=== PATIENT | female | born 1955 | race African-American/Black ===

== ENCOUNTER 2018-10-31 02:42 | Inpatient (IN) ==
[2018-10-31 03:55] LABS: Basophils % 0.3 % (0.0-0.8); Eosinophils # 0.1 10*3/uL (0.0-0.87); Eosinophils % 1.2 % (0.00-10.9); Hematocrit 29.5 VOL% (35.7-47.0); Hemoglobin 9.1 GM/DL (12.0-16.0); Immature Granulocytes % 0.3 %; Immature Granulocytes Absolute 0.02 #; Lymphocytes # 2.3 10*3/uL (1.4-4.0); Lymphocytes % 40.2 % (21.3-54.2); Mean Corpuscular HGB Conc 30.8 GM/DL (32-36); Mean Corpuscular Hemoglobin 27 PG (27-34); Mean Corpuscular Volume 85.8 FL (87-102); Mean Platelet Volume 10.8 FL (9.6-12.0); Monocytes # 0.5 10*3/uL (0.11-0.8); Monocytes % 7.9 % (1.7-12.7); Neutrophils # 2.9 10*3/uL (1.4-7.4); Neutrophils % 50.1 % (38.7-73.9); Platelet Count 227 T/CUMM (130-400); Red Blood Count 3.44 MC/CUMM (3.8-5.5); Red Cell Distribution Width 13.1 % (9.3-17.3); White Blood Count 5.7 T/CUMM (4-12)
[2018-10-31 03:58] LABS: PT Patient Result 10.5 SECS; Partial Thromboplastin Time 21.2 SECS (0-40)
[2018-10-31 04:08] LABS: Alanine Aminotransferase 25 U/L (13-56); Albumin 3.4 G/DL (3.4-5.0); Alkaline Phosphatase 79 U/L (45-117); Aspartate Amino Transferase 15 U/L (0-37); Bilirubin,Total < 0.39 MG/DL (0.2-1.0); Blood Urea Nitrogen 20 MG/DL (7-18); Calcium 8.5 MG/DL (8.5-10.1); Glucose 260 MG/DL (74-106); Osmolality,Calculated 290.4 MOS/KG (273-304); Sodium 140 MMOL/L (136-145); Total Protein 6.5 G/DL (6.4-8.3)
[2018-10-31] MEDS ORDERED: ONDANSETRON 4 MG/2 ML VIAL IV PRN (06:02)
[2018-10-31] MEDS ORDERED: ALBUTEROL/IPRATROPIUM 3 ML NEB RESP TX PRN (06:09)
[2018-10-31] MEDS ORDERED: DEXTROSE 50% 25 GM/50 ML SYRINGE IV PRN (06:09)
[2018-10-31] MEDS ORDERED: GLUCAGON 1 MG VIAL IM PRN (06:09)
[2018-10-31] MEDS ORDERED: SODIUM CHLORIDE 0.9% 1,000 ML IV PRN (06:10)
[2018-10-31] MEDS: PANTOPRAZOLE 40 MG VIAL IV SCH (08:17)
[2018-10-31] MEDS: SODIUM CHLORIDE 0.9% 1,000 ML IV SCH ×2 (08:17→16:03)
[2018-10-31] MEDS: INSULIN REGULAR 100 UNIT/ML SUBCUT SCH ×4 (08:17→20:39)
[2018-10-31 08:23] LABS: Hemoglobin 8.5 GM/DL (12.0-16.0)
[2018-10-31 11:24] LABS: Hematocrit 24.4 VOL% (35.7-47.0)
[2018-10-31 11:26] LABS: Hemoglobin 7.8 GM/DL (12.0-16.0)
[2018-10-31 16:10] LABS: Hematocrit 24.4 VOL% (35.7-47.0); Hemoglobin 7.5 GM/DL (12.0-16.0)
[2018-10-31] MEDS: CARVEDILOL 12.5 MG TABLET PO SCH (16:51)
[2018-10-31 19:30] LABS: Hematocrit 23.9 VOL% (35.7-47.0); Hemoglobin 7.4 GM/DL (12.0-16.0)
[2018-10-31] MEDS ORDERED: ACETAMINOPHEN 325 MG TABLET PO PRN (20:15)
[2018-10-31] MEDS: SIMVASTATIN 20 MG TABLET PO SCH (20:38)
[2018-10-31] MEDS ORDERED: INSULIN DETEMIR 100 UNIT/ML SUBCUT SCH (21:00)
[2018-10-31 23:22] LABS: Hematocrit 24.4 VOL% (35.7-47.0); Hemoglobin 7.6 GM/DL (12.0-16.0)
[2018-11-01 05:04] LABS: Basophils % 0.4 % (0.0-0.8); Eosinophils # 0.1 10*3/uL (0.0-0.87); Eosinophils % 1.6 % (0.00-10.9); Hematocrit 25.3 VOL% (35.7-47.0); Hemoglobin 7.7 GM/DL (12.0-16.0); Immature Granulocytes % 0.4 %; Immature Granulocytes Absolute 0.02 #; Lymphocytes # 2.2 10*3/uL (1.4-4.0); Lymphocytes % 42.2 % (21.3-54.2); Mean Corpuscular HGB Conc 30.4 GM/DL (32-36); Mean Corpuscular Hemoglobin 26 PG (27-34); Mean Corpuscular Volume 86.6 FL (87-102); Mean Platelet Volume 12.3 FL (9.6-12.0); Monocytes # 0.5 10*3/uL (0.11-0.8); Monocytes % 10.4 % (1.7-12.7); Neutrophils # 2.3 10*3/uL (1.4-7.4); Platelet Count 148 T/CUMM (130-400); Red Blood Count 2.92 MC/CUMM (3.8-5.5); Red Cell Distribution Width 13.3 % (9.3-17.3); White Blood Count 5.1 T/CUMM (4-12)
[2018-11-01 05:05] LABS: Hemoglobin 7.8 GM/DL (12.0-16.0)
[2018-11-01 05:42] LABS: Calcium 8.3 MG/DL (8.5-10.1); Potassium 3.7 MMOL/L (3.5-5.1); Risk Ratio 2.76; Thyroid Stimulating Hormone 1.62 uIU/ml (0.358-3.74); VLDL CHOLESTEROL 28.4 MG/DL
[2018-11-01] MEDS: PANTOPRAZOLE 40 MG VIAL IV SCH (08:27)
[2018-11-01] MEDS: LEVOTHYROXINE 75 MCG TABLET PO SCH (08:27)
[2018-11-01] MEDS: CARVEDILOL 12.5 MG TABLET PO SCH ×2 (08:27→17:00)
[2018-11-01] MEDS: INSULIN REGULAR 100 UNIT/ML SUBCUT SCH ×4 (08:27→21:54)
[2018-11-01 08:46] LABS: % Iron Saturation 18.3 % (18-50); Ferritin 56.9 ng/ml (8-252)
[2018-11-01] MEDS ORDERED: LISINOPRIL 20 MG TABLET PO SCH (09:00)
[2018-11-01] MEDS ORDERED: CYANOCOBALAMIN 1000 MCG/1 ML VIAL IM ONE (10:02)
[2018-11-01] MEDS: sitaGLIPtin 25 MG TABLET PO SCH (12:00)
[2018-11-01 14:25] LABS: Hematocrit 25.6 VOL% (35.7-47.0); Hemoglobin 7.9 GM/DL (12.0-16.0)
[2018-11-01 16:09] LABS: Hematocrit 27.1 VOL% (35.7-47.0); Hemoglobin 8.4 GM/DL (12.0-16.0)
[2018-11-01] MEDS ORDERED: INSULIN GLARGINE 100 UNIT/ML SUBCUT SCH (17:00)
[2018-11-01] MEDS: SIMVASTATIN 20 MG TABLET PO SCH (21:54)
[2018-11-01 22:32] LABS: Hematocrit 25.4 VOL% (35.7-47.0)
[2018-11-02] MEDS: LEVOTHYROXINE 75 MCG TABLET PO SCH (06:19)
[2018-11-02 06:33] LABS: Basophils % 0.4 % (0.0-0.8); Eosinophils # 0.1 10*3/uL (0.0-0.87); Eosinophils % 1.5 % (0.00-10.9); Hematocrit 24.6 VOL% (35.7-47.0); Hemoglobin 7.7 GM/DL (12.0-16.0); Immature Granulocytes % 0.4 %; Immature Granulocytes Absolute 0.02 #; Lymphocytes # 1.7 10*3/uL (1.4-4.0); Lymphocytes % 36.6 % (21.3-54.2); Mean Corpuscular HGB Conc 31.3 GM/DL (32-36); Mean Corpuscular Hemoglobin 27 PG (27-34); Mean Corpuscular Volume 85.7 FL (87-102); Mean Platelet Volume 10.6 FL (9.6-12.0); Monocytes # 0.4 10*3/uL (0.11-0.8); Monocytes % 9.5 % (1.7-12.7); Neutrophils # 2.4 10*3/uL (1.4-7.4); Neutrophils % 51.6 % (38.7-73.9); Platelet Count 226 T/CUMM (130-400); Red Blood Count 2.87 MC/CUMM (3.8-5.5); Red Cell Distribution Width 13.4 % (9.3-17.3); White Blood Count 4.6 T/CUMM (4-12)
[2018-11-02 07:00] LABS: Calcium 8.4 MG/DL (8.5-10.1); Osmolality,Calculated 283.8 MOS/KG (273-304); Potassium 3.4 MMOL/L (3.5-5.1)
[2018-11-02] MEDS ORDERED: POTASSIUM CHLORIDE 20 MEQ TABLET PO ONE (07:19)
[2018-11-02] MEDS: sitaGLIPtin 25 MG TABLET PO SCH (08:23)
[2018-11-02] MEDS: CARVEDILOL 12.5 MG TABLET PO SCH (08:23)
[2018-11-02] MEDS: PANTOPRAZOLE 40 MG VIAL IV SCH (08:23)
[2018-11-02] MEDS: INSULIN REGULAR 100 UNIT/ML SUBCUT SCH ×2 (08:24→12:40)
[2018-11-02 12:39] VITALS: BP 134/68
[2018-11-02 14:05] LABS: Hematocrit 26.5 VOL% (35.7-47.0); Hemoglobin 8.3 GM/DL (12.0-16.0)
== END 2018-11-02 15:25 | disposition home or self-care (01) | DRG 378 ==
LOC: N.ED 02:42 → N.EDINP 06:02 → N.5E 06:54
PROVIDERS: ADMIT Internal Medicine; ATTEND Internal Medicine

== ENCOUNTER 2022-07-08 14:36 | Inpatient (IN) ==
[2022-07-08] MEDS ORDERED: HYDROmorphone 1 MG/1 ML SYRINGE ONE (16:51)
[2022-07-08] MEDS ORDERED: HYDROmorphone 1 MG/1 ML SYRINGE IV STA (16:52)
[2022-07-08 17:58] LABS: Basophils % 0.3 % (0.0-0.8); Eosinophils % 0.5 % (0.00-10.9); Hematocrit 34.5 VOL% (35.7-47.0); Hemoglobin 11.1 GM/DL (12.0-16.0); Immature Granulocytes % 0.3 %; Immature Granulocytes Absolute 0.02 #; Lymphocytes # 1.9 10*3/uL (1.4-4.0); Lymphocytes % 28.5 % (21.3-54.2); Mean Corpuscular HGB Conc 32.2 GM/DL (32-36); Mean Corpuscular Volume 83.7 FL (87-102); Mean Platelet Volume 10.9 FL (9.6-12.0); Monocytes # 0.5 10*3/uL (0.11-0.8); Monocytes % 7.4 % (1.7-12.7); Platelet Count 248 T/CUMM (130-400); Red Blood Count 4.12 MC/CUMM (3.8-5.5); Red Cell Distribution Width 13.8 % (9.3-17.3); White Blood Count 6.6 T/CUMM (4-12)
[2022-07-08 18:08] LABS: INR 0.9; PT Patient Result 10.2 SECS (10.1-12.1); Partial Thromboplastin Time 20.5 SECS (23.7-32.9)
[2022-07-08] MEDS ORDERED: GLUCAGON 1 MG VIAL IM PRN (18:14)
[2022-07-08] MEDS ORDERED: ONDANSETRON 4 MG/2 ML VIAL IV PRN (18:14)
[2022-07-08] MEDS ORDERED: ZALEPLON 5 MG CAPSULE PO PRN (18:14)
[2022-07-08] MEDS ORDERED: hydrALAZINE 20 MG/1 ML VIAL IV PRN (18:14)
[2022-07-08 18:16] LABS: Albumin 3.6 G/DL (3.4-5.0); Bilirubin,Total 0.6 MG/DL (0.20-1.00); Calcium 9.6 MG/DL (8.5-10.1); Osmolality,Calculated 278.7 MOS/KG (273-304); Potassium 3.6 MMOL/L (3.5-5.1); Total Protein 7.2 G/DL (6.4-8.2)
[2022-07-08] MEDS ORDERED: DEXTROSE 10% 250 ML BAG IV PRN (18:24)
[2022-07-08] MEDS: HYDROmorphone 1 MG/1 ML SYRINGE IV PRN (21:47)
[2022-07-08] MEDS: carvediloL 12.5 MG TABLET PO SCH (22:00)
[2022-07-08] MEDS: SODIUM CHLORIDE 0.45% 1,000 ML IV SCH (22:01)
[2022-07-08] MEDS: INSULIN REGULAR 100 UNIT/ML SUBCUT SCH (22:02)
[2022-07-08] MEDS: INSULIN GLARGINE 100 UNIT/ML SUBCUT SCH (22:06)
[2022-07-08] MEDS: amLODIPine 10 MG TABLET PO SCH (22:08)
[2022-07-09] MEDS: HYDROmorphone 1 MG/1 ML SYRINGE IV PRN ×6 (01:05→23:54)
[2022-07-09 04:50] LABS: Basophils % 0.5 % (0.0-0.8); Eosinophils # 0.1 10*3/uL (0.0-0.87); Eosinophils % 0.8 % (0.00-10.9); Hematocrit 33.7 VOL% (35.7-47.0); Hemoglobin 10.8 GM/DL (12.0-16.0); Immature Granulocytes % 0.3 %; Immature Granulocytes Absolute 0.02 #; Lymphocytes # 1.8 10*3/uL (1.4-4.0); Lymphocytes % 27.7 % (21.3-54.2); Mean Corpuscular Volume 84.3 FL (87-102); Mean Platelet Volume 11.6 FL (9.6-12.0); Monocytes # 0.6 10*3/uL (0.11-0.8); Monocytes % 9.3 % (1.7-12.7); Neutrophils % 61.4 % (38.7-73.9); Platelet Count 235 T/CUMM (130-400); Red Cell Distribution Width 13.7 % (9.3-17.3); White Blood Count 6.6 T/CUMM (4-12)
[2022-07-09 05:19] LABS: Albumin 3.3 G/DL (3.4-5.0); Bilirubin,Total 0.7 MG/DL (0.20-1.00); Calcium 8.8 MG/DL (8.5-10.1); Osmolality,Calculated 282.4 MOS/KG (273-304); Potassium 3.7 MMOL/L (3.5-5.1); Thyroid Stimulating Hormone 7.06 uIU/ml (0.358-3.74); Total Protein 6.7 G/DL (6.4-8.2)
[2022-07-09] MEDS ORDERED: LIDOCAINE 2% 5 ML VIAL ONE (06:29)
[2022-07-09] MEDS ORDERED: MIDAZOLAM 2 MG/2 ML VIAL ONE (06:29)
[2022-07-09] MEDS ORDERED: ROCURONIUM 50 MG/5 ML VIAL IV ONE (06:29)
[2022-07-09] MEDS ORDERED: ONDANSETRON 4 MG/2 ML VIAL ONE (06:29)
[2022-07-09] MEDS ORDERED: SUCCINYLCHOLINE 200 MG/10 ML VIAL ONE (06:29)
[2022-07-09] MEDS ORDERED: propofoL 200 MG/20 ML VIAL IV ONE (06:29)
[2022-07-09] MEDS ORDERED: fentaNYL 100 MCG/2 ML VIAL ONE (06:30)
[2022-07-09] MEDS ORDERED: FAMOTIDINE 20 MG TABLET PO ONE (06:44)
[2022-07-09] MEDS ORDERED: ALBUTEROL 2.5 MG/3 ML NEB RESP TX ONE (06:48)
[2022-07-09] MEDS ORDERED: ceFAZolin 1,000 MG VIAL ONE (07:24)
[2022-07-09] MEDS ORDERED: FAMOTIDINE 20 MG/2 ML VIAL IV ONE (07:31)
[2022-07-09] MEDS: INSULIN REGULAR 100 UNIT/ML SUBCUT SCH ×4 (07:34→21:05)
[2022-07-09] MEDS: LEVOTHYROXINE 75 MCG TABLET PO SCH (07:34)
[2022-07-09] MEDS ORDERED: SEVOFLURANE 1 UNIT/15 MINUTE INH ONE (08:06)
[2022-07-09] MEDS ORDERED: GLYCOPYRROLATE 0.4 MG/2 ML VIAL ONE (08:34)
[2022-07-09] MEDS ORDERED: NEOSTIGMINE 10 MG/10 ML VIAL ONE (08:34)
[2022-07-09] MEDS ORDERED: ALBUTEROL/IPRATROPIUM 3 ML NEB RESP TX ONE (09:11)
[2022-07-09] MEDS ORDERED: LIDOCAINE 1% 5 ML VIAL ONE (09:14)
[2022-07-09] MEDS ORDERED: ROPIVACAINE 0.5% 30 ML VIAL ONE (09:15)
[2022-07-09] MEDS ORDERED: ONDANSETRON 4 MG/2 ML VIAL IV PRN (09:47)
[2022-07-09] MEDS ORDERED: DEXTROSE 10% 250 ML BAG IV PRN (10:26)
[2022-07-09] MEDS: FONDAPARINUX 2.5 MG/0.5 ML SYRINGE SUBCUT SCH (10:45)
[2022-07-09] MEDS: lisinopriL 10 MG TABLET PO SCH (10:45)
[2022-07-09] MEDS: carvediloL 12.5 MG TABLET PO SCH ×2 (10:45→21:07)
[2022-07-09] MEDS: PANTOPRAZOLE 40 MG TABLET PO SCH (10:45)
[2022-07-09] MEDS: ASCORBIC ACID 500 MG TABLET PO SCH (11:34)
[2022-07-09] MEDS: MAGNESIUM OXIDE 400 MG TABLET PO SCH ×2 (11:35→21:06)
[2022-07-09] MEDS: SODIUM CHLORIDE 0.45% 1,000 ML IV SCH (18:00)
[2022-07-09] MEDS: INSULIN GLARGINE 100 UNIT/ML SUBCUT SCH (21:06)
[2022-07-09] MEDS: amLODIPine 10 MG TABLET PO SCH (21:07)
[2022-07-10] MEDS: HYDROmorphone 1 MG/1 ML SYRINGE IV PRN ×3 (03:49→10:33)
[2022-07-10 04:53] LABS: Basophils % 0.3 % (0.0-0.8); Eosinophils % 0.4 % (0.00-10.9); Hematocrit 30.6 VOL% (35.7-47.0); Hemoglobin 9.9 GM/DL (12.0-16.0); Immature Granulocytes % 0.3 %; Immature Granulocytes Absolute 0.03 #; Lymphocytes # 2.3 10*3/uL (1.4-4.0); Lymphocytes % 21.4 % (21.3-54.2); Mean Corpuscular HGB Conc 32.4 GM/DL (32-36); Mean Corpuscular Volume 84.3 FL (87-102); Mean Platelet Volume 11.3 FL (9.6-12.0); Monocytes % 9.5 % (1.7-12.7); Neutrophils % 68.1 % (38.7-73.9); Platelet Count 217 T/CUMM (130-400); Red Blood Count 3.63 MC/CUMM (3.8-5.5); White Blood Count 10.8 T/CUMM (4-12)
[2022-07-10] MEDS: LEVOTHYROXINE 75 MCG TABLET PO SCH (06:35)
[2022-07-10] MEDS: SODIUM CHLORIDE 0.45% 1,000 ML IV SCH ×2 (06:35→21:36)
[2022-07-10] MEDS: INSULIN REGULAR 100 UNIT/ML SUBCUT SCH ×4 (08:15→21:24)
[2022-07-10] MEDS: lisinopriL 10 MG TABLET PO SCH (08:16)
[2022-07-10] MEDS: oxyCODONE/ACETAMINOPHEN 5-325 MG TABLET PO PRN ×3 (08:16→21:25)
[2022-07-10] MEDS: ASCORBIC ACID 500 MG TABLET PO SCH (08:16)
[2022-07-10] MEDS: PANTOPRAZOLE 40 MG TABLET PO SCH (08:16)
[2022-07-10] MEDS: MAGNESIUM OXIDE 400 MG TABLET PO SCH ×2 (08:16→21:27)
[2022-07-10] MEDS: DOCUSATE SODIUM 100 MG CAPSULE PO PRN ×2 (08:16→21:25)
[2022-07-10] MEDS: carvediloL 12.5 MG TABLET PO SCH ×2 (08:16→21:25)
[2022-07-10] MEDS: FONDAPARINUX 2.5 MG/0.5 ML SYRINGE SUBCUT SCH (10:33)
[2022-07-10] MEDS: INSULIN GLARGINE 100 UNIT/ML SUBCUT SCH (21:25)
[2022-07-10] MEDS: amLODIPine 10 MG TABLET PO SCH (21:27)
[2022-07-11] MEDS: oxyCODONE/ACETAMINOPHEN 5-325 MG TABLET PO PRN ×2 (03:28→07:41)
[2022-07-11 05:03] LABS: Basophils % 0.1 % (0.0-0.8); Eosinophils # 0.1 10*3/uL (0.0-0.87); Eosinophils % 1.9 % (0.00-10.9); Hematocrit 29.3 VOL% (35.7-47.0); Hemoglobin 9.2 GM/DL (12.0-16.0); Immature Granulocytes % 0.7 %; Immature Granulocytes Absolute 0.05 #; Lymphocytes # 1.6 10*3/uL (1.4-4.0); Lymphocytes % 22.5 % (21.3-54.2); Mean Corpuscular HGB Conc 31.4 GM/DL (32-36); Mean Corpuscular Volume 85.2 FL (87-102); Mean Platelet Volume 10.8 FL (9.6-12.0); Monocytes # 0.8 10*3/uL (0.11-0.8); Monocytes % 11.5 % (1.7-12.7); Neutrophils % 63.3 % (38.7-73.9); Platelet Count 207 T/CUMM (130-400); Red Blood Count 3.44 MC/CUMM (3.8-5.5); White Blood Count 7.2 T/CUMM (4-12)
[2022-07-11 05:22] LABS: Calcium 8.9 MG/DL (8.5-10.1); Osmolality,Calculated 283.3 MOS/KG (273-304); Potassium 3.6 MMOL/L (3.5-5.1)
[2022-07-11] MEDS: LEVOTHYROXINE 75 MCG TABLET PO SCH (06:19)
[2022-07-11] MEDS: INSULIN REGULAR 100 UNIT/ML SUBCUT SCH ×4 (07:41→21:20)
[2022-07-11] MEDS: ASCORBIC ACID 500 MG TABLET PO SCH (09:17)
[2022-07-11] MEDS: MAGNESIUM OXIDE 400 MG TABLET PO SCH ×2 (09:17→21:18)
[2022-07-11] MEDS: lisinopriL 10 MG TABLET PO SCH (09:17)
[2022-07-11] MEDS: carvediloL 12.5 MG TABLET PO SCH ×2 (09:17→21:17)
[2022-07-11] MEDS: PANTOPRAZOLE 40 MG TABLET PO SCH (09:17)
[2022-07-11] MEDS ORDERED: POLYETHYLENE GLYCOL POWDER 17 GM PACK PO PRN (09:38)
[2022-07-11] MEDS ORDERED: POLYETHYLENE GLYCOL POWDER 17 GM PACK PO ONE (09:38)
[2022-07-11] MEDS: FONDAPARINUX 2.5 MG/0.5 ML SYRINGE SUBCUT SCH (12:07)
[2022-07-11] MEDS: ASPIRIN EC 325 MG TABLET PO SCH (12:34)
[2022-07-11] MEDS ORDERED: LACTULOSE 20 GM/30 ML UDCUP PO ONE (13:06)
[2022-07-11] MEDS: SODIUM CHLORIDE 0.45% 1,000 ML IV SCH (13:35)
[2022-07-11] MEDS: metFORMIN 500 MG TABLET PO SCH (16:53)
[2022-07-11] MEDS: amLODIPine 10 MG TABLET PO SCH (21:17)
[2022-07-11] MEDS: INSULIN GLARGINE 100 UNIT/ML SUBCUT SCH (21:18)
[2022-07-11] MEDS: ACETAMINOPHEN 325 MG TABLET PO PRN (21:40)
[2022-07-12] MEDS: LEVOTHYROXINE 75 MCG TABLET PO SCH (05:31)
[2022-07-12 05:59] LABS: Basophils % 0.3 % (0.0-0.8); Eosinophils # 0.2 10*3/uL (0.0-0.87); Eosinophils % 3.2 % (0.00-10.9); Hematocrit 30.3 VOL% (35.7-47.0); Hemoglobin 9.5 GM/DL (12.0-16.0); Immature Granulocytes % 0.4 %; Immature Granulocytes Absolute 0.03 #; Lymphocytes # 1.5 10*3/uL (1.4-4.0); Lymphocytes % 21.6 % (21.3-54.2); Mean Corpuscular HGB Conc 31.4 GM/DL (32-36); Mean Corpuscular Volume 85.6 FL (87-102); Mean Platelet Volume 11.2 FL (9.6-12.0); Monocytes # 0.8 10*3/uL (0.11-0.8); Monocytes % 12.1 % (1.7-12.7); Neutrophils % 62.4 % (38.7-73.9); Platelet Count 230 T/CUMM (130-400); Red Blood Count 3.54 MC/CUMM (3.8-5.5); Red Cell Distribution Width 13.8 % (9.3-17.3)
[2022-07-12 06:22] LABS: Calcium 9.2 MG/DL (8.5-10.1); Osmolality,Calculated 283.1 MOS/KG (273-304); Potassium 3.5 MMOL/L (3.5-5.1)
[2022-07-12] MEDS: SODIUM CHLORIDE 0.45% 1,000 ML IV SCH (07:21)
[2022-07-12] MEDS: oxyCODONE/ACETAMINOPHEN 5-325 MG TABLET PO PRN (07:21)
[2022-07-12] MEDS: INSULIN REGULAR 100 UNIT/ML SUBCUT SCH ×4 (07:53→20:18)
[2022-07-12] MEDS: ASCORBIC ACID 500 MG TABLET PO SCH (08:17)
[2022-07-12] MEDS: metFORMIN 500 MG TABLET PO SCH ×2 (08:17→16:32)
[2022-07-12] MEDS: PANTOPRAZOLE 40 MG TABLET PO SCH (08:17)
[2022-07-12] MEDS: carvediloL 12.5 MG TABLET PO SCH ×2 (08:17→16:32)
[2022-07-12] MEDS: ASPIRIN EC 325 MG TABLET PO SCH (08:17)
[2022-07-12] MEDS: MAGNESIUM OXIDE 400 MG TABLET PO SCH ×2 (08:17→20:27)
[2022-07-12] MEDS: lisinopriL 10 MG TABLET PO SCH (08:17)
[2022-07-12] MEDS: FONDAPARINUX 2.5 MG/0.5 ML SYRINGE SUBCUT SCH (12:06)
[2022-07-12] MEDS: amLODIPine 10 MG TABLET PO SCH (20:26)
[2022-07-12] MEDS: ACETAMINOPHEN 325 MG TABLET PO PRN (20:26)
[2022-07-12] MEDS: INSULIN GLARGINE 100 UNIT/ML SUBCUT SCH (20:27)
[2022-07-13] MEDS: LEVOTHYROXINE 75 MCG TABLET PO SCH (05:40)
[2022-07-13 06:11] LABS: Basophils % 0.4 % (0.0-0.8); Eosinophils # 0.3 10*3/uL (0.0-0.87); Eosinophils % 3.6 % (0.00-10.9); Hematocrit 31.5 VOL% (35.7-47.0); Hemoglobin 9.9 GM/DL (12.0-16.0); Immature Granulocytes % 0.3 %; Immature Granulocytes Absolute 0.02 #; Lymphocytes # 1.7 10*3/uL (1.4-4.0); Lymphocytes % 24.5 % (21.3-54.2); Mean Corpuscular HGB Conc 31.4 GM/DL (32-36); Mean Corpuscular Volume 84.7 FL (87-102); Monocytes # 0.9 10*3/uL (0.11-0.8); Monocytes % 12.6 % (1.7-12.7); Neutrophils % 58.6 % (38.7-73.9); Platelet Count 284 T/CUMM (130-400); Red Blood Count 3.72 MC/CUMM (3.8-5.5); Red Cell Distribution Width 13.7 % (9.3-17.3)
[2022-07-13 06:29] LABS: Calcium 9.6 MG/DL (8.5-10.1); Osmolality,Calculated 280.4 MOS/KG (273-304); Potassium 3.6 MMOL/L (3.5-5.1)
[2022-07-13] MEDS: INSULIN REGULAR 100 UNIT/ML SUBCUT SCH ×2 (08:16→11:39)
[2022-07-13] MEDS: lisinopriL 10 MG TABLET PO SCH (08:29)
[2022-07-13] MEDS: ASPIRIN EC 325 MG TABLET PO SCH (08:29)
[2022-07-13] MEDS: PANTOPRAZOLE 40 MG TABLET PO SCH (08:30)
[2022-07-13] MEDS: metFORMIN 500 MG TABLET PO SCH (08:30)
[2022-07-13] MEDS: carvediloL 12.5 MG TABLET PO SCH (08:30)
[2022-07-13] MEDS: ASCORBIC ACID 500 MG TABLET PO SCH (08:30)
[2022-07-13] MEDS: MAGNESIUM OXIDE 400 MG TABLET PO SCH (08:30)
[2022-07-13] MEDS: oxyCODONE/ACETAMINOPHEN 5-325 MG TABLET PO PRN (10:00)
[2022-07-13 11:07] VITALS: BP 133/55
[2022-07-13] MEDS: FONDAPARINUX 2.5 MG/0.5 ML SYRINGE SUBCUT SCH (11:39)
== END 2022-07-13 13:32 | disposition home or self-care (01) | DRG 494 ==
LOC: N.ED 14:36 → N.EDINP 17:50 → INTOOBSV 17:50 → OBSVTOIN 17:50 → SUATTDRO 17:50 → N.3E 19:38
PROVIDERS: ADMIT Hospitalist; ATTEND Family Medicine